=== PATIENT | male | born 1950 | race Caucasian/White ===

== ENCOUNTER 2017-04-17 13:37 | Emergency (ER) | payer SELFPAY ==
[2017-04-17] MEDS ORDERED: Lidocaine 1% with EPINEPHrine 1:200,000 30 ML SDV INFILT STA (14:03)
[2017-04-17 14:10] VITALS: BP 155/84
[2017-04-17] MEDS ORDERED: Lidocaine 1% with EPINEPHrine 1:100,000 50 ML MDV INFILT STA (14:27)
[2017-04-17] MEDS ORDERED: Sodium Bicarbonate 8.4% 50 MEQ/50 ML SDV SCH (15:00)
--- NOTE | 2017-04-17 15:42 | EDM.PDOC ---
ED HPI GENERAL MEDICAL PROBLEM - General Chief Complaint: Laceration Stated Complaint: FELL & HIT LT SIDE OF FACE & LT LEG Time Seen by Provider: 04/17/17 14:25 Source of Information: Reports: Patient, Family History Limitations: Reports: No Limitations - History of Present Illness INITIAL COMMENTS - FREE TEXT/NARRATIVE: [place] and slipped, fell on face. No LOC. Denies ALVAREZ, Sz, dental malocclusion, diplopia or vision problems. Onset: Today Location: Reports: Face (`) Left Face Pain Score (Numeric/FACES): 5 - Related Data Allergies Allergy/AdvReac Type Severity Reaction Status Date / Time No Known Allergies Allergy Verified 04/17/17 13:58 Home Meds: Home Meds Metoprolol Succinate 100 mg PO DAILY 04/17/17 [History] Omeprazole 40 mg PO DAILY 04/17/17 [History] amLODIPine [Norvasc] 10 mg PO DAILY 04/17/17 [History] Past Medical History HEENT History: Reports: Impaired Vision Cardiovascular History: Reports: Hypertension Musculoskeletal History: Reports: Fracture Social & Family History - Tobacco Use Smoking Status *Q: Never Smoker - Caffeine Use Caffeine Use: Reports: Coffee - Alcohol Use Days Per Week of Alcohol Use: 7 Number of Drinks Per Day: 1 Total Drinks Per Week: 7 - Recreational Drug Use Recreational Drug Use: No ED ROS GENERAL - Review of Systems Review Of Systems: ROS reveals no pertinent complaints other than HPI. ED EXAM, SKIN/RASH Exam: See Below Text/Narrative:: Patient alert, oriented, NAD. Neck supple, no midline bony tenderness or crepitus. Normal AROM. L inf. orbital rim shows 2.5 cm scaving curved laceration thru dermis but not into the subq. No orbital rim crepitus or defect palpable. Inf. lid ecchymotic and swollen. Facial palpation and intraoral exam showed no tenderness, defect or crepitus over zygoma. Normal occlusion. No midface instability. No mandibular or other facial injury. Eye Exam: Bilateral Eye: EOMI, PERRL Ears: Normal External Exam Nose: Normal Inspection Throat/Mouth: Normal Inspection Head: Normocephalic Neck: Normal Inspection, Supple, Non-Tender, Full Range of Motion Respiratory/Chest: No Respiratory Distress ED SKIN PROCEDURES - Laceration/Wound Repair Face Lac/Wound length In cm: 2.5 Appearance: Clean Distal NVT: Neuro & Vascular Intact Anesthetic Type: Local Local Anesthesia - Lidocaine (Xylocaine): 1% with EPI (buffered with bicarbonate ) Skin Prep: Providone-Iodine (Betadine) Saline Irrigation (cc's): 25 Exploration/Debridement/Repair: Wound Explored, In a Bloodless Field, Explored to Base, Minimal Debridement, Minimally Undermined, No Foreign Material Found Progress/Comments: after careful irrigation and removal of betadine from skin, with care to avoid conjunctiva/eyes, 5 6-0 vicryl deep sutures used. Skin approximated with 1 6.0 prolene horizontal mattress suture and two simple interrupted, followed by Dermabond. Course - Vital Signs Last Recorded V/S: Last Vital Signs Temp 36.2 C 04/17/17 13:56 Pulse 67 04/17/17 13:56 Resp 14 04/17/17 13:56 BP 155/84 H 04/17/17 13:56 Pulse Ox 94 L 04/17/17 13:56 - Orders/Labs/Meds Orders: Active Orders 24 hr Category Date Time Status Sodium Bicarbonate [Sodium Bicarbonate 8.4%] Med 04/17/17 15:00 Active 999 meq .XX ASDIRECTED Medication Orders Sodium Bicarbonate (Sodium Bicarbonate 8.4%) 999 meq .XX ASDIRECTED NAM Last Admin: 04/17/17 14:44 Dose: 50 meq Meds: Medications Generic Name Dose Route Start Last Admin Trade Name Freq PRN Reason Stop Dose Admin Sodium Bicarbonate 999 meq 04/17/17 15:00 04/17/17 14:44 Sodium Bicarbonate 8.4% .XX 50 meq ASDIRECTED NMA Administration Discontinued Medications Generic Name Dose Route Start Last Admin Trade Name Freq PRN Reason Stop Dose Admin Lidocaine/Epinephrine 0 ml 04/17/17 14:27 04/17/17 14:35 Xylocaine 1% With Epinephrine 1:100,000 INFILT 04/17/17 14:28 50 ml NOW STA Administration Departure - Departure Time of Disposition: 15:45 Disposition: Home, Self-Care 01 Condition: Good Clinical Impression: Facial laceration - Discharge Information Referrals: PCP,None [Primary Care Provider] - Additional Instructions: Return to emergency department if problems with vision. Have sutures removed in 5 days. Keep area clean, do not use any ointment or lotion. Follow up if increased swelling, pus, or significant pain. - My Orders Last 24 Hours: My Active Orders 04/17/17 15:00 Sodium Bicarbonate [Sodium Bicarbonate 8.4%] 999 meq .XX ASDIRECTED - Assessment/Plan Last 24 Hours: My Active Orders 04/17/17 15:00 Sodium Bicarbonate [Sodium Bicarbonate 8.4%] 999 meq .XX ASDIRECTED Assessment:: No evidence of orbital or facial bone fracture or retroorbital hematoma.
== END 2017-04-17 16:03 | disposition home or self-care (01) ==
LOC: JP.ED 13:37
DX: S01.81XA Laceration without foreign body of other part of head, initial encounter (principal); I10 Essential (primary) hypertension; Z79.899 Other long term (current) drug therapy; W01.10XA Fall on same level from slipping, tripping and stumbling with subsequent striking against unspecified object, initial encounter
CPT/HCPCS: 12011; 99283; A4217; J3490